=== PATIENT | female | born 1975 | race Caucasian/White ===

== ENCOUNTER 2019-03-01 12:32 | Outpatient (CLI) | payer OTHER ==
--- NOTE | 2019-03-02 10:09 | XRAY Report ---
Reason: KNEE PAIN Procedure Date: 03/01/2019 Accession Number: [id number] / [id number] Procedure: XRN - Knee 4 View RT CPT Code: Final Report FULL RESULT: EXAM: RIGHT KNEE RADIOGRAPHY EXAM DATE: 03/01/2019 01:03 PM. CLINICAL HISTORY: KNEE PAIN. COMPARISON: None. TECHNIQUE: 4 views. FINDINGS: Bones: Normal. No fractures or bone lesions. Joints: Prominent tricompartmental spurring. Spurring of tibial spines and intercondylar notch. Lateral view raises concern for a 2 cm loose body superior to patella. Small effusion. Soft Tissues: Normal. No soft tissue swelling. IMPRESSION: 1. Degenerative changes with prominent marginal spurring and concern for loose body. Consider MRI or MR arthrography. RADIA
== END 2019-03-01 12:33 | disposition home or self-care (01) ==
LOC: DI.N 12:32
PROVIDERS: ATTEND Physician Assistant Medical
DX: M17.11 Unilateral primary osteoarthritis, right knee (principal)

== ENCOUNTER 2019-03-10 08:03 | Outpatient (CLI) | payer OTHER | END 2019-03-10 08:04 | disposition home or self-care (01) | LOC: DI 08:03 | PROVIDERS: ATTEND Physician Assistant Medical | DX: Z53.9 Procedure and treatment not carried out, unspecified reason (principal) ==

== ENCOUNTER 2020-05-16 08:00 | Outpatient (CLI) | payer OTHER | END 2020-05-16 23:59 | disposition home or self-care (01) | LOC: LAB.R 08:00 | PROVIDERS: ATTEND Nurse Practitioner | DX: N39.0 Urinary tract infection, site not specified (principal) | CPT/HCPCS: 87086; 87181 ==

== ENCOUNTER 2020-05-25 15:28 | Outpatient (CLI) | payer OTHER ==
--- NOTE | 2020-05-25 17:01 | Ultrasound Report ---
PROCEDURE: Duplex Ext Veins Left INDICATIONS: LOWER EXTREMITY EDEMA,LEFT TECHNIQUE: Real-time imaging, as well as color and pulse Doppler interrogation, were performed of the lower extr emity deep veins from the inguinal ligament to the popliteal fossa. COMPARISON: None. FINDINGS: The deep veins are normally compressible, and free of intraluminal thrombus. Color and pu lse Doppler demonstrate normal phasic intraluminal flow. There is normal augmentation response to di stal compression maneuver. A medial popliteal cyst is seen measuring 2.2 x 2.0 x 1.4 cm. IMPRESSION: 1. No sonographic evidence of deep venous thrombosis in the left lower extremity. 2. Small 2.2 cm medial popliteal cyst. Reviewed by: Willi Shoemaker MD on 05/25/2020 5:00 PM [facility] Approved by: Willi Shoemaker MD on 05/25/2020 5:00 PM [facility] Station ID: [id number]
== END 2020-05-25 15:29 | disposition home or self-care (01) ==
LOC: DI 15:28
PROVIDERS: ATTEND Obstetrics & Gynecology
DX: M71.22 Synovial cyst of popliteal space [Baker], left knee (principal)

== ENCOUNTER 2022-09-15 11:02 | Day surgery (SDC) | payer OTHER ==
--- NOTE | 2022-09-15 11:58 | ED Physician Documentation ---
PD HPI ABD PAIN - Stated complaint Stated Complaint: FEMALE , BACK PX - Chief complaint Chief Complaint: Abd Pain - History obtained from History obtained from: Patient - Additional information Additional information: 2 nights ago on Thursday night she and her were "spicing it up" in the bedroom with a larger nonmotorized 6 to oy. She felt something very uncomfortable during that time and has had cramping and bleeding ever since. She has a 2-year-old Mirena IUD and feels like it has shifted. PD PAST MEDICAL HISTORY - Past Medical History Past Medical History: No - Past Surgical History Past Surgical History: No - Present Medications Home Medications: Ambulatory Orders Medication Instructions Recorded Confirmed No Known Home Medications 09/15/22 09/15/22 - Allergies Allergies/Adverse Reactions: Allergies Allergy/AdvReac Type Severity Reaction Status Date / Time Penicillins Allergy Unknown Verified 09/15/22 11:17 - Social History Does the pt smoke?: No Smoking Status: Never smoker Does the pt drink ETOH?: No Does the pt have substance abuse?: No - Immunizations Immunizations are current?: Yes PD ED PE NORMAL - Vitals Vital signs reviewed: Yes - General General: Alert and oriented X 3, No acute distress - Female Female : Other (Done with Jeana newman RN present and chaperoning. Limited by long vaginal canal and this but unable to visualize IUD strings. Cervix was visualized.) - Neuro Neuro: Alert and oriented X 3, Normal speech - Psych Psych: Normal mood, Normal affect Results - Vitals Vitals: Vital Signs - 24 hr 09/15/22 09/15/22 11:17 15:26 Temperature 36.6 C Heart Rate 92 56 L Respiratory 19 18 Rate Blood Pressure 139/99 H 167/99 H O2 Saturation 98 100 Oxygen O2 Source Room air - Labs Labs: Laboratory Tests 09/15/22 09/15/22 15:18 15:18 WBC 9.8 RBC 4.61 Hgb 13.8 Hct 41.7 MCV 90.5 MCH 29.9 MCHC 33.1 RDW 13.2 Plt Count 451 H MPV 10.2 Neut # (Auto) 5.6 Lymph # (Auto) 3.1 [place] # (Auto) 0.7 Eos # (Auto) 0.3 Baso # (Auto) 0.1 Absolute Nucleated RBC 0.00 Nucleated RBC % 0.0 Sodium 137 Potassium 3.7 Chloride 105 Carbon Dioxide 24 Anion Gap 8.0 BUN 20 Creatinine 0.8 Estimated GFR (MDRD) 78 L Glucose 95 Calcium 8.9 Total Bilirubin 0.9 AST 23 ALT 31 Alkaline Phosphatase 76 Total Protein 7.4 Albumin 4.0 Globulin 3.4 Albumin/Globulin Ratio 1.2 - Rads (name of study) CT abdomen pelvis showing asymmetric left IUD in the upper uterus Relevant Findings:: Final report received, EMP independent interpretation of test PD Medical Decision Making - ED course ED course: 46-year-old woman who has had pelvic and back pain and some bleeding since using some sex toys 2 nights ago. Nontender anteriorly but I am unable to see IUD strings on pelvic exam. CT ruling out perforation but does show asymmetric high IUD. Case discussed with Dr. Acuna by phone, her [employer]IDENT[employer] MANAGER business systems consultant who will see the patient. Dr Acuna could not see strings or remove IUD, plans to take to OR.. Departure - Departure Disposition: ED Transfer to [facility] Clinical Impression: IUD mechanical complication Condition: Stable
--- NOTE | 2022-09-15 14:17 | CT Report ---
PROCEDURE: ABDOMEN/PELVIS WO INDICATIONS: Lost IUD p sex toy, strings not visible, abd pain TECHNIQUE: A CT scan of the abdomen and pelvis was performed without the use of intravenous contrast. Images we re recorded and evaluated at appropriate window settings. Reformats: coronal and sagittal. For radiat ion dose reduction, the following was used: automated exposure control, adjustment of mA and/or kV ac cording to patient size. COMPARISON: None. FINDINGS: Image quality: Excellent. Lung bases and heart: Unremarkable. Liver: No solid mass. Gallbladder and biliary tree: No radiopaque stones or wall thickening. No biliary dilation. Spleen: No splenomegaly. Pancreas: No pancreatic ductal dilation. Adrenals: No adrenal nodule. Kidneys and ureters: No hydronephrosis. No renal cystic lesion which requires follow up. No solid mas s. Bowel and peritoneum: No bowel distension. No pathologic free fluid. Lymph nodes: No central or retroperitoneal adenopathy. Vessels: No infrarenal aortic aneurysm. PELVIS Reproductive organs: The IUD is within the asymmetric left side of the uterus. The uterus likely has fibroids. Bladder: No wall thickness, accounting for underdistention. Pelvic lymph nodes: No pelvic adenopathy by size criteria. Bones: No aggressive osseous abnormality. Other: No significant ventral or inguinal hernia. IMPRESSION: The IUD is asymmetric to the left side of the mid to upper uterus. This appearance could be due to th e presence of a large right fibroid, or improperly placed IUD. Consider correlation with pelvic ultra sound to ensure proper positioning. Reviewed by: Benito Wall on 09/15/2022 2:16 PM PDT Approved by: Benito Wall on 09/15/2022 2:16 PM PDT Station ID: [id number]
[2022-09-15] MEDS ORDERED: PROPOFOL 500 MG/50 ML 500 MG/50 ML VIAL ONE (15:27)
[2022-09-15] MEDS ORDERED: MIDAZOLAM 2 MG/2 ML VIAL ONE (15:27)
[2022-09-15] MEDS ORDERED: fentaNYL 100 MCG/2 ML VIAL ONE (15:27)
--- NOTE | 2022-09-15 15:32 | ANESTHESIA ---
Pre-Anesthesia VS, & Labs - Diagnosis dislodged IUD - Procedure hysteroscopy Vital Signs: Temp Pulse Resp BP Pulse Ox O2 Flow Rate 36.6 C 56 L 18 167/99 H 100 09/15/22 11:17 09/15/22 15:26 09/15/22 15:26 09/15/22 15:26 09/15/22 15:26 Height: 5 ft 7 in Weight (kg): 145.15 kg Body Mass Index: 50.1 BMI Classification: Morbidly Obese - NPO >8 hours - Is Patient ?: No - Lab Results Lab results reviewed: Yes Home Medications and Allergies Home Medications: Ambulatory Orders No Known Home Medications 09/15/22 No Known Home Medications 09/15/22 Allergies/Adverse Reactions: Allergies Allergy/AdvReac Type Severity Reaction Status Date / Time Penicillins Allergy Unknown Verified 09/15/22 11:17 Anes History & Medical History - Anesthetic History Anesthesia Complications: reports: No previous complications Family history of Anesthesia Complications: Denies Family history of Malignant Hyperthermia: Denies - Medical History Cardiovascular: reports: None Pulmonary: reports: None Endocrine/Autoimmune: reports: None, Other (obesity) Blood Disorders: reports: None Skin: reports: None Smoking Status: Never smoker Psychosocial: reports: Cannabis (edibles) History of Cancer?: No - Surgical History Other Past Surgical History: wisdom teeth extraction Exam General: Alert, Oriented x3, Cooperative Dental: Partials Upper (bridge) Mouth Openin Fingerbreadth Neck Mobility: Normal Mallampati classification: II Thyromental Distance: 4-6 cm Respiratory: Lungs clear, Normal breath sounds, No respiratory distress Cardiovascular: Regular rate Neurological: Normal speech Mental/Cognitive Status: Alert/Oriented X3, Normal for patient Cognitive Status: Within normal limits Plan Anesthesia Type: MAC, Total IV Consent for Procedure(s) Verified and Reviewed: Yes Code Status: Attempt Resuscitation ASA classification: 2-Mild systemic disease Is this case an emergency?: No
[2022-09-15 15:34] LABS: BASOPHILS # (AUTO) 0.1 10^3/uL (0.0-0.1); BASOPHILS % (AUTO) 1.1 %; EOSINOPHILS # (AUTO) 0.3 10^3/uL (0.0-0.7); EOSINOPHILS % (AUTO) 2.6 %; HCT - HEMATOCRIT 41.7 % (37.0-47.0); HGB - HEMOGLOBIN 13.8 g/dL (12.0-16.0); LYMPHOCYTES # (AUTO) 3.1 10^3/uL (1.5-3.5); LYMPHOCYTES % (AUTO) 31.4 %; MEAN CORPUSCULAR HEMOGLOBIN 29.9 pg (27.0-31.0); MEAN CORPUSCULAR HGB CONC 33.1 g/dL (32.0-36.0); MEAN CORPUSCULAR VOLUME 90.5 fL (81.0-99.0); MEAN PLATELET VOLUME 10.2 fL (7.9-10.8); MONOCYTES # (AUTO) 0.7 10^3/uL (0.0-1.0); MONOCYTES % (AUTO) 7.4 %; NEUTROPHILS # (AUTO) 5.6 10^3/uL (1.5-6.6); NEUTROPHILS % (AUTO) 57.2 %; PLT - PLATELET COUNT 451 10^3/uL (130-450); RED BLOOD COUNT 4.61 10^6/uL (4.20-5.40); RED CELL DISTRIBUTION WIDTH 13.2 % (12.0-15.0); WHITE BLOOD COUNT 9.8 x10^3/uL (4.8-10.8)
[2022-09-15 15:44] LABS: ALBUMIN/GLOBULIN RATIO 1.2 (1.0-2.2); BILIRUBIN,TOTAL 0.9 mg/dL (0.2-1.0); CALCIUM 8.9 mg/dL (8.5-10.3); CREATININE 0.8 mg/dL (0.4-1.0); POTASSIUM 3.7 mmol/L (3.5-5.0); TOTAL PROTEIN 7.4 g/dL (6.7-8.2)
[2022-09-15] MEDS ORDERED: METOCLOPRAMIDE 10 MG/2 ML VIAL IVP PRN (16:02)
[2022-09-15] MEDS ORDERED: ATROPINE ABBOJECT 1 MG/10 ML SYRINGE IVP PRN (16:02)
[2022-09-15] MEDS ORDERED: ONDANSETRON 4 MG/2 ML VIAL IVP PRN (16:02)
[2022-09-15] MEDS ORDERED: ePHEDrine 50 MG/ML VIAL IVP PRN (16:02)
[2022-09-15] MEDS ORDERED: NALOXONE 0.4 MG/ML VIAL IVP PRN (16:02)
[2022-09-15] MEDS ORDERED: HYDROmorphone 0.5 MG/0.5 ML SYRINGE IVP PRN (16:02)
[2022-09-15] MEDS ORDERED: fentaNYL 100 MCG/2 ML VIAL IVP PRN (16:02)
[2022-09-15] MEDS ORDERED: MORPHINE 2 MG/ML CARPUJECT IVP PRN (16:02)
[2022-09-15] MEDS ORDERED: LEVONORGESTREL 20 MCG/24H IUD IY ONE ×2 (16:39→17:02)
[2022-09-15] MEDS ORDERED: PROPOFOL 200 MG/20 ML VIAL IVP ONE (16:53)
[2022-09-15] MEDS ORDERED: metroNIDAZOLE 500 MG/100 ML 500 MG/100 ML BAG ONE (16:57)
[2022-09-15] MEDS ORDERED: LACTATED RINGERS 1,000 ML IV SCH (17:00)
--- NOTE | 2022-09-15 17:05 | OPERATIVE REPORT ---
Operative Report - General Procedure Date: 09/15/22 Planned Procedure: Hysteroscopy D&C to remove IUD and replace with new Mirena Pre-Op Diagnosis: dislodged IUD Procedure Performed: dilation of cervix. removal of IUD. placement of mirena IUD Post Op Diagnosis: misplaced iud removed. new IUD Placed. - Procedure Note Primary Surgeon: Anabel Acuna MD Anesthesia Provider: Jos Orta CRNA Anesthesia Technique: MAC Pathology: none IV Fluids (mL): 500 Estimated Blood Loss (mL): 1 Urine Output (mL): 125 Indications: painful after sex. CT shows misplaced IUD. not perforated. Findings: small cervical os. Mirena IUD removed in tact. Uterus sounds 9 cm Complications: none - Other Other Information/Narrative: Procedure reviewed. Patient brought to OR and given IV sedation. Legs placed in Michael stirrups. prepped normally. Bladder emptied with straight cath. SCDs on her lower legs. Time out done. speculum placed and cervix grasped with a tenaculum. dilated to allow the IUD hook to be placed. this brought IUD strings to cervix where I was able to grasp it with a forceps and remove the IUD in tact. Uterus sounded 9 cm and new Mirena IUD was placed. strings were cut to about 3 cm in length. Instruments were removed and patient was awakened and brought to the PACU in stable condition.
--- NOTE | 2022-09-15 17:05 | ANESTHESIA POST OP EVALUATION ---
Anesthesia Post Eval - Post Anesthesia Eval Vitals: Last Vital Signs Temp 36.5 C 09/15/22 17:00 Pulse 86 09/15/22 17:00 Resp 18 09/15/22 17:00 BP 147/101 H 09/15/22 17:00 Pulse Ox 100 09/15/22 17:00 O2 Flow Rate CV Function Including HR & BP: Stable Pain Control: Satisfactory Nausea & Vomiting: Negative Mental Status: Baseline Respiratory Status: Airway Patent Hydration Status: Satisfactory Anesthesia Complications: None
[2022-09-15] MEDS ORDERED: LACTATED RINGERS 1,000 ML IV ONE (17:06)
[2022-09-15 17:41] VITALS: BP 139/83
== END 2022-09-15 16:09 | disposition home or self-care (01) ==
LOC: ED 11:02 → SDS 16:08
PROVIDERS: ATTEND Obstetrics & Gynecology
DX: T83.89XA Other specified complication of genitourinary prosthetic devices, implants and grafts, initial encounter (principal); Y83.8 Other surgical procedures as the cause of abnormal reaction of the patient, or of later complication, without mention of misadventure at the time of the procedure; E66.01 Morbid (severe) obesity due to excess calories; Z68.43 Body mass index [BMI] 50.0-59.9, adult
CPT/HCPCS: 36415; 58300; 58301; 74176; 80053; 85025; J7120; J7298; 99284; 99285